=== PATIENT | male | born 1960 | race Caucasian/White ===

== ENCOUNTER 2019-03-17 13:22 | Emergency (ER) | payer OTHER ==
--- NOTE | 2019-03-17 15:29 | ER ---
EMERGENCY ROOM DIAGNOSIS: Laceration, right little finger. HISTORY: This 58-year-old man who was accidentally stabbed his distal left little finger with a clean paring knife while working in the kitchen today. He states that the knife when in the tip of the little finger and came out the other side. He came in, suspect that he might need sutures. His last tetanus booster was 3 years ago. PAST MEDICAL HISTORY: Reviewed. See EMR. MEDICATIONS: Reviewed. See EMR. ALLERGIES: NONE TO MEDICATIONS. PHYSICAL EXAMINATION: GENERAL: He reveals a calm, pleasant man, in no acute distress. EXTREMITIES: He has a laceration involving the pulp/volar aspect of his distal phalanx of the left little finger. The entry site is on the medial aspect and measures approximately 6- 7 mm in length. The exit site is on the lateral aspect of the distal phalanx measuring approximately 3-4 mm in length. It does go all the way through the subcutaneous tissue obviously. His distal flexor tendon function is intact and his sensation is intact as well. IMPRESSION: Finger lacerations (2) EMERGENCY ROOM COURSE: Further emergency room course: His wound was cleaned with Betadine and it was allowed to soak in Betadine soap and water for approximately 15-20 minutes. I recommended suture of these and he agreed. I obtained a digital block with 3 mL of 1% Xylocaine without epinephrine and painted the entire finger with Betadine. Using aseptic technique, the skin edges were approximated with 2 interrupted sutures of 3-0 monofilament nylon medially and one suture laterally for a total of 3 sutures. A sterile occlusive dressing was applied after antibiotic ointment was applied over this. He was instructed regarding care as well as symptoms and signs of infection and he was instructed to have the sutures removed in 1 week's time. All questions were answered. He understands and agrees. VERO/BRYSON /[id number] MEL
== END 2019-03-17 14:40 | disposition home or self-care (01) ==
LOC: LB.ED 13:22
DX: S61.217A Laceration without foreign body of left little finger without damage to nail, initial encounter (principal); W26.0XXA Contact with knife, initial encounter; Y93.89 Activity, other specified; Y92.89 Other specified places as the place of occurrence of the external cause
CPT/HCPCS: 12001; 99282-25